=== PATIENT | male | born 2000 | race Caucasian/White ===

== ENCOUNTER 2021-04-16 10:50 | Emergency (ER) | payer BC, OTHER ==
[~2021-04-16] VITALS: Ht 170.2 cm; Wt 100.0 kg
--- NOTE | 2021-04-16 11:20 | PHYS DOC ---
Past Medical History Past Medical History: No Pertinent History Past Surgical History: Tonsillectomy, Other Additional Past Surgical Histo: hernia Smoking Status: Current Some Day Smoker Alcohol Use: None Drug Use: None General Adult EDM: Chief Complaint: HAND PROBLEM HPI: HPI: Patient is a 20 year old male who presents to the ED today complaining of mild right hand pain that began yesterday after he punched a refrigerator. Patient is right-handed. Patient describes the pain as sharp and intermittent worse on range of motion. States immobilization relieves the pain Review of Systems: Review of Systems: Constitutional: Denies fever or chills. [] Musculoskeletal: Reports right hand pain Integument: Denies rash. [] Neurologic: Denies headache, focal weakness or sensory changes. [] Psychiatric: Denies depression or anxiety. [] Heart Score: C/O Chest Pain: N/A Risk Factors: Risk Factors: DM, Current or recent (<one month) smoker, HTN, HLP, family history of CAD, obesity. Risk Scores: Score 0 - 3: 2.5% MACE over next 6 weeks - Discharge Home Score 4 - 6: 20.3% MACE over next 6 weeks - Admit for Clinical Observation Score 7 - 10: 72.7% MACE over next 6 weeks - Early Invasive Strategies Allergies: Allergies: Allergies Coded Allergies Type Severity Reaction Last Updated Verified No Known Drug Allergies 04/09/14 No Physical Exam: PE: Constitutional: Well developed, well nourished, no acute distress, non-toxic appearance. [] Skin: Warm, dry, no erythema, no rash. [] Back: No tenderness, no CVA tenderness. [] Extremities: Right hand with obvious swelling on the mid fourth and fifth metacarpals. Tenderness on palpation to the areas. Full range of motion to the right hand and fingers. Adequate sensation to the right hand. +2 right radial pulse. Cap refill less than 2 seconds of right fingers Neurologic: Alert and oriented X 3, normal motor function, normal sensory function, no focal deficits noted. [] Psychologic: Affect normal, judgement normal, mood normal. [] EKG: EKG: [] Radiology/Procedures: Radiology/Procedures: []PROCEDURE: HAND RIGHT 3V XR HAND_RIGHT 3 VIEWS DATE: 04/16/2021 11:12 AM INDICATION: pain punched fridge, PAIN FROM 5TH DIGIT THROUGH MEDIAL HAND COMPARISON: None. FINDINGS: Bones: Acute nondisplaced fracture at the base of the fifth metacarpal with extension into the CMC joint. Joints: The joint spaces are normal. Miscellaneous: None. IMPRESSION: Acute nondisplaced fracture of the fifth metatarsal base. Electronically signed by: Madelyn Rand MD (04/16/2021 11:49 AM) [id number] DICTATED and SIGNED BY: MADELYN RAND MD DATE: 04/16/21 [id number] 0 Course & Med Decision Making: Course & Med Decision Making Pertinent Labs and Imaging studies reviewed. (See chart for details) Patient is 20-year-old male patient presenting to the ED today with right hand pain after punching a refrigerator yesterday. Right hand x-rays interpreted by radiologist noted for acute nondisplaced fracture of the fifth metatarsal base. Patient was put in a ulnar gutter splint by the ED RN, neurovascular exam done by me is normal. Ice elevation encouraged. Follow-up with orthopedic doctor. Lelia Disclaimer: Lelia Disclaimer: This electronic medical record was generated, in whole or in part, using a voice recognition dictation system. Departure Departure Impression: Primary Impression: Fracture of fifth metacarpal bone of right hand Qualified Codes: S62.346A - Nondisplaced fracture of base of fifth metacarpal bone, right hand, initial encounter for closed fracture Disposition: 01 HOME / SELF CARE / HOMELESS Condition: STABLE Referrals: NO PCP (PCP) INGA RICCI MD Please call the office today and set up a follow up appointment Patient Instructions: Hand Fracture, Metacarpals Additional Instructions: You have right hand fracture. Please follow-up with the provided orthopedic doctor in 1 week. Try to ice and elevate the extremity. Scripts Naproxen (NAPROXEN) 500 Mg Tablet 1 TAB PO BID for pain, #20 TAB 0 Refills Prov: KARYN CARDENAS [employer]ING MACHINE OPERATOR 04/16/21 Hydrocodone/Acetaminophen (Hydrocodone-Acetamin 5-325 mg) 1 Each Tablet 1 EACH PO Q6HRS PRN for PAIN, #10 TAB Prov: KARYN CARDENAS P[employer]ER [employer]OLDING MACHINE OPERATOR 04/16/21 KARYN CARDENAS APRN Apr 16, 2021 11:20
--- NOTE | 2021-04-16 11:51 | RAD ---
XR HAND_RIGHT 3 VIEWS DATE: 04/16/2021 11:12 AM INDICATION: pain punched fridge, PAIN FROM 5TH DIGIT THROUGH MEDIAL HAND COMPARISON: None. FINDINGS: Bones: Acute nondisplaced fracture at the base of the fifth metacarpal with extension into the CMC segundo int. Joints: The joint spaces are normal. Miscellaneous: None. IMPRESSION: Acute nondisplaced fracture of the fifth metatarsal base. Electronically signed by: Karan Zabala MD (04/16/2021 11:49 AM) [id number]
[2021-04-16] MEDS ORDERED: NAPR-514 PO (12:01)
[2021-04-16] MEDS ORDERED: HYDR-2759 PO (12:01)
[2021-04-16 12:45] VITALS: BP 133/88
== END 2021-04-16 12:48 | disposition home or self-care (01) ==
LOC: ER 10:50
DX: S62.346A Nondisplaced fracture of base of fifth metacarpal bone, right hand, initial encounter for closed fracture (principal); F17.200 Nicotine dependence, unspecified, uncomplicated; W22.03XA Walked into furniture, initial encounter; Y93.89 Activity, other specified; Y92.89 Other specified places as the place of occurrence of the external cause; Y99.8 Other external cause status
CPT/HCPCS: 29125; 73130; 99283